=== PATIENT | male | born 1985 | race Caucasian/White ===

== ENCOUNTER 2019-04-21 09:25 | Emergency (ER) | payer OTHER ==
[2019-04-21 09:45] VITALS: BP 137/81; PULSE 71; RESP 18; TEMP 98.4
--- NOTE | 2019-04-21 10:09 | ED ---
Eye Problem HPI - General Chief complaint: Eye Problems Stated complaint: eye problem/congestion Time Seen by Provider: 04/21/19 09:51 Source: patient, RN notes reviewed Mode of arrival: ambulatory Limitations: no limitations - History of Present Illness Initial comments: 34-year-old male presents emergency Department chief complaint of left eye drainage, redness, swelling. Patient states started with some cold like symptoms over the last 4-5 days. Patient states that it's getting the point where symptoms are not improving. Patient states that his left eye was crusted shut this morning patient has some drainage denies any blurred vision, though pleasant. Patient's taken [id number] cough and cold medications. He has no foreign body sensation. - Related Data Home Medications Medication Instructions Recorded Confirmed Ibuprofen [Motrin] 800 mg PO TID PRN 04/21/19 04/21/19 diphenhydrAMINE HCL [Benadryl] 25 mg PO HS PRN 04/21/19 04/21/19 Previous Rx's Medication Instructions Recorded Amoxicillin/Potassium Clav 1 tab PO Q12HR #20 tab 04/21/19 [Augmentin 875-125 Tablet] Tobramycin [Tobrex 0.3% Ophth Soln] 1 drop LEFT EYE Q4HR #5 ml 04/21/19 Allergies Allergy/AdvReac Type Severity Reaction Status Date / Time No Known Allergies Allergy Verified 04/21/19 09:54 Review of Systems ROS Statement: Those systems with pertinent positive or pertinent negative responses have been documented in the HPI. ROS Other: All systems not noted in ROS Statement are negative. Past Medical History Past Medical History: No Reported History History of Any Multi-Drug Resistant Organisms: None Reported Additional Past Surgical History / Comment(s): Right hand Past Psychological History: No Psychological Hx Reported Smoking Status: Current every day smoker Past Alcohol Use History: Occasional Past Drug Use History: None Reported General Exam Limitations: no limitations General appearance: alert, in no apparent distress Head exam: Present: atraumatic, normocephalic, normal inspection Eye exam: Present: normal appearance, PERRL, EOMI, conjunctival injection (Left), periorbital swelling (Mild left). Absent: scleral icterus ENT exam: Present: normal exam, normal oropharynx, mucous membranes moist, TM's normal bilaterally Neck exam: Present: normal inspection. Absent: tenderness, meningismus, lymphadenopathy Respiratory exam: Present: normal lung sounds bilaterally. Absent: respiratory distress, wheezes, rales, rhonchi, stridor Cardiovascular Exam: Present: regular rate, normal rhythm, normal heart sounds. Absent: systolic murmur, diastolic murmur, rubs, gallop, clicks Neurological exam: Present: alert Skin exam: Present: warm, dry, intact Course Vital Signs 04/21/19 09:44 Temperature 98.4 F Pulse Rate 71 Respiratory 18 Rate Blood Pressure 137/81 O2 Sat by Pulse 99 Oximetry Medical Decision Making - Medical Decision Making Patient has left thigh conjunctivitis. Patient was started on Tobrex eyedrops. Patient also has underlying respiratory infection, there is some concerns for left periorbital cellulitis secondary to the swelling and redness. Patient was started on Augmentin. Patient will follow-up with PCP return parameters were discussed. Disposition Clinical Impression: Sinusitis, Bacterial conjunctivitis, URI (upper respiratory infection) Disposition: HOME SELF-CARE Condition: Stable Instructions (If sedation given, give patient instructions): Conjunctivitis (ED) Additional Instructions: Please return to the Emergency Department if symptoms worsen or any other concerns. Prescriptions: Amoxicillin/Potassium Clav [Augmentin 875-125 Tablet] 1 tab PO Q12HR #20 tab Tobramycin [Tobrex 0.3% Ophth Soln] 1 drop LEFT EYE Q4HR #5 ml Is patient prescribed a controlled substance at d/c from ED?: No Referrals: Torie Martinez MD [Primary Care Provider] - 1-2 days Time of Disposition: 10:08
== END 2019-04-21 10:12 | disposition home or self-care (01) ==
LOC: EC 09:25
DX: H10.9 Unspecified conjunctivitis (principal); J06.9 Acute upper respiratory infection, unspecified; J32.9 Chronic sinusitis, unspecified; F17.200 Nicotine dependence, unspecified, uncomplicated
CPT/HCPCS: 99283